=== PATIENT | female | born 1990 | race African-American/Black ===

== ENCOUNTER 2020-11-26 02:55 | Emergency (ER) | payer BC ==
[~2020-11-26] VITALS: Ht 157.5 cm; Wt 81.7 kg
[2020-11-26 03:34] LABS: ABSOLUTE NEUTROPHILS 2.5 thou/uL (1.4-8.2); BASOPHILS 0.7 % (0.0-2.0); EOSINOPHILS 1.5 % (0.0-3.0); HEMATOCRIT 29.9 % (37.0-47.0); HEMOGLOBIN 9.1 gm/dL (12.0-15.0); LYMPHOCYTES 44.2 % (24.0-44.0); MCH 22.1 pg (26.0-34.0); MCHC 30.4 g/dL (28.0-37.0); MCV 72.6 fL (80.0-100.0); MONOCYTES 8.9 % (1.0-8.0); PLATELET COUNT 361 thou/uL (150-400); POLYS 44.7 % (36.0-66.0); RBC 4.12 mil/uL (4.20-5.00); RDW 18.8 % (10.5-14.5); WBC 5.5 thou/uL (4.0-11.0)
[2020-11-26 03:37] LABS: ANION GAP 8 mmol/L (7-16); BUN 16 mg/dL (7-18); CALCIUM 9.1 mg/dL (8.5-10.1); CHLORIDE 105 mmol/L (98-107); CO2 27 mmol/L (21-32); CREATININE 1.1 mg/dL (0.6-1.0); GLUCOSE 106 mg/dL (74-106); POTASSIUM 4.3 mmol/L (3.5-5.1); SODIUM 140 mmol/L (136-145)
[2020-11-26 03:46] LABS: TROPONIN-I <0.06 ng/mL (<0.06)
[2020-11-26] MEDS ORDERED: HYDROXYZINE HCL25 M2 PO (04:59)
[2020-11-26 05:13] VITALS: BP 103/73
--- NOTE | 2020-11-26 07:19 | EKG ---
[address] [place] [address] ELECTROCARDIOGRAM REPORT Name: JESSEEKRISH Loretta [facility] [id number] Admission: 11/26/20 Attend Phys: Discharge: 11/26/20 Date of : 88 Report #: [id number] [facility] ED Test Date: 2020-11-26 Test Time: 03:09:32 Pat Name: KRISH HOOKS Department: Room: Gender: F Proposal Analyst: [facility] : 1990 Requested By: Chaim Griffin Order Number: [id number] MD: Tom Talbert Measurements Intervals [place] Rate: 83 P: 38 IA: 137 QRS: 36 QRSD: 75 T: 31 QT: 334 QTc: 393 Interpretive Statements Sinus rhythm No previous ECG available for comparison Electronically Signed On 11-26-2020 7:19:38 CDT by Tom Talbert [email or web address] <ELECTRONICALLY SIGNED> By: Tom Talbert MD, [facility] 11/26/20 [id number] Tom Talbert MD, FACC /EPI
[2020-11-26 08:32] LABS: ANISOCYTOSIS 2+; PLATELET ESTIMATE NORMAL; POLYCHROMASIA SLIGHT
[2020-11-26 08:33] LABS: MICROCYTES 1+
== END 2020-11-26 05:18 | disposition home or self-care (01) ==
LOC: ER 02:55
PROVIDERS: Emergency Medicine
DX: R07.89 Other chest pain (principal)

== ENCOUNTER 2021-03-28 04:23 | Emergency (ER) | payer BC ==
[~2021-03-28] VITALS: Ht 157.5 cm; Wt 99.8 kg
[~2021-03-28 04:23] MED LIST: HYDROXYZINE HCL25 M2 PO
[2021-03-28 09:07] VITALS: BP 117/71
== END 2021-03-28 09:07 | disposition home or self-care (01) ==
LOC: ER 04:23
DX: Z20.822 Contact with and (suspected) exposure to COVID-19 (principal); I10 Essential (primary) hypertension; Z79.899 Other long term (current) drug therapy